=== PATIENT | male | born 1970 | race Caucasian/White ===

== ENCOUNTER → 2018-01-14 | Outpatient (CLI) | payer OTHER | LOC: FIMAGING 12:02 | PROVIDERS: ATTEND Internal Medicine | DX: R05 Cough (principal) ==

== ENCOUNTER → 2018-08-17 | Outpatient (CLI) | payer OTHER | LOC: FIMAGING 14:11 | PROVIDERS: ATTEND Orthopaedic Surgery | DX: M17.12 Unilateral primary osteoarthritis, left knee (principal) ==

== ENCOUNTER 2018-09-06 13:24 | Observation (INO) | payer OTHER ==
--- NOTE | 2018-09-06 06:22 | PDHPUP ---
History & Physical Update H&P update statement: This history and physical update is based on an assessment of the patient which was completed after admission or registration (within 24 hours), but prior to the surgery/procedure. H&P update: H&P reviewed & patient examined, no change in patient's condition since H&P completed
[~2018-09-06 13:24] MED LIST: DEXAMETHASONE 4 MG/ML VIAL ONE; LIDOCAINE 2% 5 ML SDV ONE; ONDANSETRON 4 MG/2 ML VIAL ONE; PROPOFOL/EMULSION 500 MG/50 ML BOTTLE IV ONE; ROPIVACAINE 0.2% 80 MG, EPINEPHrine 0.2 MG, KETOROLAC TROMETHAMINE 30 MG in SYRINGE 0 ML IU ONE; ROPIVACAINE HCL 150 MG/30 ML INJ ONE; TRANEXAMIC ACID 3,000 MG in NS (SYRINGE) 50 ML IRR ONE; TRANEXAMIC ACID 3,000 MG/50 ML BAG IRR ONE; VANCOMYCIN 1 GM VIAL ONE; fentaNYL 100 MCG/2 ML INJ ONE
[2018-09-06] MEDS ORDERED: FAMOTIDINE 20 MG TAB PO ONE (13:43)
[2018-09-06] MEDS ORDERED: DEXAMETHASONE 4 MG/ML VIAL IVP ONE (13:43)
[2018-09-06] MEDS ORDERED: ceFAZolin 2 GM/DEXTROSE 100 ML IV ONE (13:43)
[2018-09-06] MEDS ORDERED: ACETAMINOPHEN 325 MG TAB PO ONE (13:43)
[2018-09-06] MEDS ORDERED: LR 1,000 ML IV ONE (13:44)
[2018-09-06] MEDS ORDERED: MIDAZOLAM 2 MG/2 ML VIAL IVP ONE (14:06)
--- NOTE | 2018-09-06 14:06 | PDANEPAE ---
ANE History of Present Illness L knee pain, here for resurfacing with robot assist ANE Past Medical History - Cardiovascular History Hx Hypertension: No Hx Arrhythmias: No Hx Chest Pain: No Hx Coronary Artery / Peripheral Vascular Disease: No Hx CHF / Valvular Disease: No Hx Palpitations: No - Pulmonary History Hx COPD: No Hx Asthma/Reactive Airway Disease: No Hx Recent Upper Respiratory Infection: No Hx Oxygen in Use at Home: No Hx Sleep Apnea: No Sleep Apnea Screening Result - Last Documented: Negative - Neurologic History Hx Cerebrovascular Accident: No Hx Seizures: No Hx Dementia: No - Endocrine History Hx Diabetes: No - Renal History Hx Renal Disorders: No - Liver History Hx Hepatic Disorders: No - Neurological & Psychiatric Hx Hx Neurological and Psychiatric Disorders: No Neurological / Psychiatric History Comment: LEXAPRO FOR HEADACHES R/T CERVICAL - Cancer History Hx Cancer: No - Congenital Disorder History Hx Congenital Disorders: No - GI History Hx Gastrointestinal Disorders: Yes Gastrointestinal History Comment: MILD REFLUX - Other Health History Other Health History: NONE - Chronic Pain History Chronic Pain: Yes (NECK) - Surgical History Prior Surgeries: CERVICAL C6/7. 7 PRIOR KNEE ON LEFT ANE Review of Systems Review of Systems: - Exercise capacity METS (RN): 5 METS ANE Patient History - Allergies Allergies/Adverse Reactions: No Known Allergies Allergy (Verified 08/28/18 11:12) - Home Medications Home Medications: Escitalopram Oxalate [Lexapro] 01/01/14 [Last Taken 1 Day Ago ~09/05/18] - NPO status NPO Since - Liquids (Date): 09/06/18 NPO Since - Liquids (Time): 11:45 NPO Since - Solids (Date): 09/05/18 NPO Since - Solids (Time): 22:00 - Smoking Hx Smoking Status: Never smoked - Family Anes Hx Family Hx Anesthesia Complications: none ANE Labs/Vital Signs - Vital Signs Blood Pressure: 118/85 Heart Rate: 73 Respiratory Rate: 16 O2 Sat (%): 99 Height: 181.61 cm Weight: 73.936 kg ANE Physical Exam - Airway Neck exam: FROM Mallampati Score: Class 2 Mouth exam: normal dental/mouth exam - Pulmonary Pulmonary: no respiratory distress - Cardiovascular Cardiovascular: regular rate and rhythym - ASA Status ASA Status: II ANE Anesthesia Plan Anesthesia Plan: GA with mask, spinal Total IV Anesthesia: Yes
[2018-09-06] MEDS ORDERED: SCOPOLAMINE HYDROBROMIDE 1 MG/3 DAYS PATCH TD ONE (15:01)
[2018-09-06] MEDS ORDERED: diphenhydrAMINE 25 MG CAP PO PRN (15:47)
[2018-09-06] MEDS ORDERED: MAGNESIUM HYDROXIDE 30 ML UDCUP PO PRN (15:47)
[2018-09-06] MEDS ORDERED: ONDANSETRON 4 MG/2 ML VIAL IVP PRN (15:47)
[2018-09-06] MEDS ORDERED: PROMETHAZINE HCL 25 MG/ML INJ IVP PRN (15:47)
[2018-09-06] MEDS ORDERED: DIPHENOXYLATE/ATROPINE LOMOTIL 1 TAB PO PRN (15:47)
[2018-09-06] MEDS ORDERED: POLYETHYLENE GLYCOL 3350 17 GM PKT PO PRN (15:47)
[2018-09-06] MEDS ORDERED: LACTULOSE 20 GM/30 ML UDCUP PO PRN (15:47)
[2018-09-06] MEDS ORDERED: TEMAZEPAM 15 MG CAP PO PRN (15:47)
[2018-09-06] MEDS ORDERED: ONDANSETRON DISINTEGRATING 4 MG TAB PO PRN (15:47)
[2018-09-06] MEDS ORDERED: BISACODYL 10 MG SUPP PR PRN (15:47)
[2018-09-06] MEDS ORDERED: oxyCODONE IR 5 MG TAB PO PRN (15:47)
[2018-09-06] MEDS ORDERED: CYCLOBENZAPRINE 10 MG TAB PO PRN (15:47)
[2018-09-06] MEDS ORDERED: METOCLOPRAMIDE 10 MG/2 ML VIAL IVP PRN (15:47)
[2018-09-06] MEDS ORDERED: PROMETHAZINE HCL 25 MG SUPPR PR PRN (15:47)
[2018-09-06] MEDS ORDERED: fentaNYL 100 MCG/2 ML INJ IVP PRN (15:48)
[2018-09-06] MEDS ORDERED: MEPERIDINE 25 MG/0.5 ML AMP IVP PRN (15:48)
[2018-09-06] MEDS ORDERED: NALOXONE HCL 0.4 MG/ML INJ IVP PRN (15:48)
[2018-09-06] MEDS ORDERED: HYDROmorphONE/DILAUDID 2 MG/ML INJ IVP PRN (15:48)
[2018-09-06] MEDS ORDERED: LR 1,000 ML IV SCH (16:00)
--- NOTE | 2018-09-06 16:30 | POSTOPPROG ---
Post Op Note Date of Operation: 09/06/18 Surgeon: Jermain Silverman Environmental Resource Specialist: arthur silverman PA-C Anesthesiologist: dr. carney Anesthesia: Spinal, Other (Specify) (adductor canal block) Pre-op Diagnosis: left knee OA Post-op Diagnosis: same Indication: left knee pain Procedure: left medial knee arthroplasty, partial knee Findings: L med PKA Inf/Abcess present in the surg proc area at time of surgery?: No EBL: 50-100
--- NOTE | 2018-09-06 16:48 | POSTANESTH ---
Post Anesthetic Evaluation Cardiovascular Status: Normal, Stable Respiratory Status: Normal, Stable Level of Consciousness/Mental Status: Can Participate in Eval, Mildly Sleepy, Arousable (AC block went well, moving bilateral lower extrem) Pain Control: Adequate, Prn Tx Ordered Nausea/Vomiting Control: Adequate, Prn Tx Ordered Complications Possibly Related to Anesthesia: None Noted
[2018-09-06] MEDS: FAMOTIDINE 20 MG TAB PO SCH (21:58)
[2018-09-06] MEDS: SENNOSIDES/DOCUSATE SODIUM TAB PO SCH (21:59)
[2018-09-06] MEDS: ASPIRIN 81 MG CHEWABLE TAB PO SCH (22:00)
[2018-09-06] MEDS: ACETAMINOPHEN 325 MG TAB PO SCH ×2 (22:17→23:46)
[2018-09-06] MEDS ORDERED: ESCITALOPRAM OXALATE 5 MG PO SCH (22:30)
[2018-09-06] MEDS: ceFAZolin 2 GM/DEXTROSE 100 ML IV SCH (23:46)
[2018-09-07] MEDS: ceFAZolin 2 GM/DEXTROSE 100 ML IV SCH (06:10)
[2018-09-07] MEDS: ACETAMINOPHEN 325 MG TAB PO SCH (06:10)
[2018-09-07 08:45] VITALS: BP 112/65
[2018-09-07] MEDS: FAMOTIDINE 20 MG TAB PO SCH (09:32)
[2018-09-07] MEDS: ASPIRIN 81 MG CHEWABLE TAB PO SCH (09:32)
[2018-09-07] MEDS: SENNOSIDES/DOCUSATE SODIUM TAB PO SCH (10:04)
--- NOTE | 2018-09-07 10:13 | ASDISCHSUM ---
Discharge Information Plan Status:Home with No Needs Medically Cleared to Leave:09/06/2018 Discharge Date:09/06/2018 CM D/C Disposition:Home, Routine, Self-Care ADT D/C Disposition:Home, Routine, Self-Care Projected Discharge Date:09/06/2018 Transportation at D/C: Discharge Delay Reason: Follow-Up Date:09/06/2018 Discharge Slot: Final Diagnosis: Placement Information Patient Contact Information Contact Name:APOLINAR Relationship: Address:[address] City:[place] Alternate Phone: State/Zip Code:[place] [address] Email: Financial Information Financial Class:[facility] Primary Plan Desc:[facility] Primary Plan Number:[id number] Secondary Plan Desc: Secondary Plan Number: Assessment Information LACE LACE Length of stay for Answers: Less than 1 day current admission Acuity / Level of Answers: No Care: Did the patient have an inpatient admission? Comorbidities - select Answers: Opioid dependence all that apply / Chronic pain # of Emergency department Answers: 0 visits in the last 6 months Score: 4 Date Signed: 09/07/2018 10:12 AM Electronically Signed By:Amanda Navarrete RN Intervention Information
--- NOTE | 2018-09-07 13:45 | SOAPPROG ---
SOAP Progress Note Assessment/Plan: Assessment: Patient is doing well POD 1 s/p L med MPL Pain management: pain is well controlled on oral pain meds. VTE ppx: recommend aspirin 81 mg BID for 4 weeks, cont DAKOTA and SCDs Anemia: level is expected initially postop. Asymptomatic. Continue to monitor D/c planning: Patient has done better than anticipated and would like to be discharged to home today. Patient must be released from PT before discharge to home. postop urinary retention: straight cath'd yesterday, resolved today. Plan: 09/07/18 13:44 Subjective: patient is doing well, denies SOB, chest pain, N/V Objective: Vital Signs Temp Pulse Resp BP Pulse Ox 36.4 C 54 L 16 112/65 95 09/07/18 08:00 09/07/18 08:00 09/07/18 08:00 09/07/18 08:00 09/07/18 08:00 Laboratory Results 09/07/18 04:53 09/06/18 09/07/18 09/08/18 05:59 05:59 05:59 Intake Total 1310 Output Total 1400 Balance -90 LLE; incision dressing is clean and dry, NVI, +pf/df ICD10 Worksheet Patient Problems: Problems Problem Status Onset Primary localized osteoarthritis of left knee Acute
--- NOTE | 2018-09-10 19:13 | GOP ---
DATE OF OPERATION: 09/06/2018 SURGEON: Montana Pelaez MD STUDENT TEACHER: JIMMY Nielsen ANESTHESIA: Spinal. PREOPERATIVE DIAGNOSIS: Left knee osteoarthritis. POSTOPERATIVE DIAGNOSIS: Left knee osteoarthritis. PROCEDURE PERFORMED: Left medial compartment partial knee replacement. FINDINGS: ESTIMATED BLOOD LOSS: 30 cc. INDICATIONS: This is a 48 year old male with progressive pain of the left knee unresponsive to conservative care. Risks and benefits of surgical intervention were explained in detail. DESCRIPTION OF PROCEDURE: The patient was brought to the operating room and placed on the table in supine position. Spinal anesthesia was induced without difficulty. A pneumatic tourniquet was applied about the left proximal thigh and the leg was prepped and draped in sterile fashion. Attention was turned first to the distal aspect of the left lateral femur. At 3 cm proximal to the lateral rise of the femur, 2 percutaneous half pins were placed for fixation of the femoral array. In a similar fashion, 2 pins were placed anterolateral on the tibia for fixation of the tibial array. External land marking and registration of the hip center was performed without difficulty. After exsanguination by elevation, the tourniquet was inflated to 250 mmHg. Incision was made from the tibial tuberosity to the superior pole of the patella. Dissection was carried out through the subcutaneous tissue to the deep fascia using Bovie electrocautery for hemostasis. Medial parapatellar arthrotomy was carried out to the superior pole of the patella. The medial collateral ligament was elevated and the infrapatellar fat pad was resected. Internal femoral and tibial registration was carried out without difficulty and the femoral and tibial checkpoints were placed and verified for accuracy. Attention was turned to the femur. The foot print for the size 4 femoral component was cut with the 6 mm bur using the [employer] robotic system and verified for accuracy against the CT based plan. The hole was cut for the femoral post. In a similar fashion, the 6 mm bur was used to cut the foot print for the size 5 tibial component using the VIVIEN system and verified for accuracy against the CT based plan. Attention was turned to the posterior aspect of the knee and remnants of the medial meniscus were excised. The posterior capsule was injected with ropivacaine, epinephrine and Toradol. Trial reduction was carried out and there was excellent range of motion, alignment and stability using the size 4 femoral component and the size 5 tibial component, 5 x 8 mm polyethylene. All trials were then removed. The joint was thoroughly irrigated and carefully dried. One package of cement and 1 gram of vancomycin were mixed in the vacuum mixer and placed on the fixation surfaces of all components. The components were implanted and all excess cement was thoroughly removed. Implant placement was verified against the CT view plan and found to be excellent. The tourniquet was deflated and all bleeders were coagulated. The wound was thoroughly irrigated and closed using interrupted sutures of 2-0 Vicryl for the joint capsule. The subcu was closed with 3-0 Vicryl and the skin with 4-0 Monocryl. Dermabond and Steri-Strips were applied, followed by a compressive dressing. The patient was then moved from the operating room to the recovery room in good condition, having tolerated the procedure well. CASE CLASSIFICATION: Clean. /[id number]/MODL MTDD
== END 2018-09-07 10:59 | disposition home or self-care (01) ==
LOC: FSGY 13:24 → F3N 15:47
PROVIDERS: ADMIT Orthopaedic Surgery; ATTEND Orthopaedic Surgery
PROC: 8E0Y0CZ Robotic Assisted Procedure of Lower Extremity, Open Approach (ICD-10-PCS; principal; 2018-09-06 15:00)
PROC: 0SRD069 Replacement of Left Knee Joint with Oxidized Zirconium on Polyethylene Synthetic Substitute, Cemented, Open Approach (ICD-10-PCS; principal; 2018-09-06 15:00)
DX: M17.12 Unilateral primary osteoarthritis, left knee (principal); D62 Acute posthemorrhagic anemia; R33.9 Retention of urine, unspecified
CPT/HCPCS: 27446; 73560; 97161; G0378; C1713; J0171; J0690; J1100; J1885; J2250; J2405; J2704; J2795; J3010; J3370